=== PATIENT | female | born 1980 | race Caucasian/White ===

== ENCOUNTER 2017-03-29 13:48 | Emergency (ER) | payer OTHER ==
[~2017-03-29] VITALS: Ht 154.9 cm; Wt 63.5 kg
[2017-03-29] MEDS ORDERED: CEPHALEXIN500 M1 PO (14:42)
== END 2017-03-29 14:47 | disposition home or self-care (01) ==
LOC: ED 13:48
DX: L02.415 Cutaneous abscess of right lower limb (principal); F17.200 Nicotine dependence, unspecified, uncomplicated